=== PATIENT | female | born 1985 | race Caucasian/White ===

== ENCOUNTER → 2019-05-10 14:34 | Outpatient (CLI) | payer SELFPAY ==
[2019-05-10 13:52] VITALS: BMI 34.2
[2019-05-10 15:08] LABS: Absolute Lymphocyte Count 1.95 X10^3/ul (0.83-4.51); Absolute Neutrophil Count 6.4 X10^3/uL (2.0-7.7); Basophil# 0.01 X10^3/uL; Basophil% 0.1 % (0-1); Eosinophil# 0.11 X10^3/uL; Eosinophils% 1.2 % (0-5); Hematocrit 37.9 % (37-47); Hemoglobin 12.7 g/dl (12.0-15.0); Lymphocyte # 1.95 X10^3/ul (4.0); Lymphocyte % 21.5 % (19-41); Mean Corp Hgb Conc 33.5 g/gl (32-36); Mean Corpuscular Hgb 29.2 pg (27.0-32.0); Mean Corpuscular Volume 87.1 fL (81-99); Mean Platelet Vol. 10.9 fl (6.2-12.0); Monocyte# 0.62 X10^3/uL; Monocyte% 6.8 % (0-10); Neutrophil # 6.39 X10^3/uL (2.7-7.7); Neutrophil % 70.3 % (47-70); POSITIVE COUNT NO; POSITIVE DIFFERENTIAL NO; POSITIVE MORPHOLOGY NO; Platelet Count 215 K/mm3 (150-450); RBC Distribution Width SD 41.4 fl (35.1-43.9); Red Blood Count 4.35 M/mm3 (4.2-5.4); White Blood Count 9.1 K/mm3 (4.4-11.0)
[2019-05-10 16:22] LABS: HIV - WCH Non-Reactive (Nonreactive); Rubella IgG 66.5 IU/mL
[2019-05-10 23:56] LABS: Chlamydia Trachomatis by PCR Negative (Negative); Neisserai gonorrhoeae by PCR Negative (Negative); Probe Check PASS; Sample Adequacy Control PASS; Specimen Processing Control PASS
[2019-05-12 02:32] LABS: Rapid Plasmin Reagin (RPR) NONREACTIVE (NONREACTIVE)
[2019-05-21 14:09] LABS: HPV APTIMA, High Risk Negative (Negative)
== END ==
PROVIDERS: Nurse Practitioner Women's Health; Family Provider Family Medicine; PCP Family Medicine; Referring Provider Obstetrics & Gynecology; Visit Provider Obstetrics & Gynecology
DX: Z34.90 Encounter for supervision of normal pregnancy, unspecified, unspecified trimester (principal); Z12.4 Encounter for screening for malignant neoplasm of cervix
CPT/HCPCS: 36415; 85025; 86592; 86703; 86762; 86850; 86900; 87086; 87340; 87491; 87591; 87624; 88175; G0145

== ENCOUNTER → 2019-08-14 12:17 | Outpatient (CLI) | payer SELFPAY ==
[2019-06-09 14:32] VITALS: BMI 34.2
[2019-08-04 09:09] VITALS: BMI 34.2
--- NOTE | 2019-08-14 12:21 | US_ITS ---
STUDY: SECOND AND THIRD TRIMESTER OBSTETRICAL ULTRASOUND REASON FOR EXAM: Female, 34 years old anatomy LMP: TECHNIQUE: Transabdominal TECHNICAL QUALITY: Adequate. PRIOR ULTRASOUND: None. FINDINGS: There is a single intrauterine fetus. The fetus is in a breech presentation. There is demonstrated cardiac activity with a heart rate of 150 bpm. There is a normal amniotic fluid volume. The largest amniotic fluid pocket measures 4.03 x 4.2 cm. The amniotic fluid index (RAJNI) is 14.48 cm. The placenta is anterior and fundal There are Grade 1 placental changes. The cervix measures 8.2 cm in length. The bilateral adnexal regions are nonvisualized BIOMETRY: BPD: 4.79 cm: 20 weeks, 3 days HC: 17.94 cm: 20 weeks, 2 days AC: 15.62 cm: 20 weeks, 5 days FL: 3.31 cm: 20 weeks, 2 days CI: 0.759 FL/BPD: 0.691 FL/HC: FL/AC: 0.212 HC/AC: 1.15 age by current US: 20 weeks, 3 days. SAM by current US: December 29, 2019. Estimated weight: 365 grams, +/- 55 grams, 62 %. age by prior US: 20 weeks, 1 days. SAM by prior US: December 31, 2019. Age by LMP: weeks, days. SAM by LMP: . ANATOMY: Cranium: Normal lateral ventricles. Normal choroid plexus. Normal cerebellum. Normal cisterna magna. Normal face, nose and lips. Chest: Normal 4-chamber heart. Abdomen/Pelvis: Normal diaphragm. Normal stomach. Normal abdominal wall. Normal cord insertion. Normal 3 vessel cord. Normal kidneys. Normal bladder. Spine: Normal cervical spine. Normal thoracic spine. Normal lumbar spine. Normal sacrum. Extremities: Normal bilateral upper extremities. Normal bilateral lower extremities. US/OB Anatomy Scan IMPRESSION: Viable intrauterine gestation approximately 20-21 weeks gestational age with fetus currently in breech position. No anomalies identified at this time Electronically Signed: Bartolome Mccormack MD at 19:23 EDT , Service support ,
== END ==
PROVIDERS: Family Provider Family Medicine; PCP Family Medicine; Referring Provider Obstetrics & Gynecology; Visit Provider Obstetrics & Gynecology
DX: Z36.89 Encounter for other specified antenatal screening (principal)
CPT/HCPCS: 76805

== ENCOUNTER → 2019-09-29 09:00 | Outpatient (CLI) | payer SELFPAY ==
[2019-09-29 08:42] VITALS: BMI 34.2
[2019-09-29 10:01] LABS: Absolute Lymphocyte Count 1.34 X10^3/uL (0.83-4.51); Absolute Neutrophil Count 6.3 X10^3/uL (2.0-7.7); Basophil# 0.03 X10^3/uL; Basophil% 0.4 % (0-1); Eosinophil# 0.09 X10^3/uL; Eosinophils% 1.1 % (0-5); Hematocrit 35.7 % (37-47); Hemoglobin 11.6 g/dL (12.0-15.0); Lymphocyte # 1.34 X10^3/ul (4.0); Mean Corp Hgb Conc 32.5 g/dL (32-36); Mean Corpuscular Hgb 30.1 pg (27.0-32.0); Mean Corpuscular Volume 92.7 fL (81-99); Monocyte# 0.54 X10^3/uL; Monocyte% 6.5 % (0-10); NRBC Flagged by Analyzer 0 % (0-5); Neutrophil % 75.2 % (47-70); Platelet Count 160 K/mm3 (150-450); RBC Distribution Width CV 13.6 % (11.6-14.6); RBC Distribution Width SD 45.8 fl (35.1-43.9); Red Blood Count 3.85 M/mm3 (4.2-5.4); White Blood Count 8.4 K/mm3 (4.4-11.0)
[2019-09-29 10:31] LABS: Glucose Challenge Gest 1H 50g 83 mg/dL (70-140)
[2019-09-29 11:03] LABS: Hepatitis B Surface Antigen Non-Reactive (Nonreactive)
== END ==
PROVIDERS: Family Provider Family Medicine; PCP Family Medicine; Referring Provider Nurse Practitioner Women's Health; Visit Provider Nurse Practitioner Women's Health
DX: Z34.90 Encounter for supervision of normal pregnancy, unspecified, unspecified trimester (principal)
CPT/HCPCS: 36415; 82950; 85025; 87340

== ENCOUNTER → 2019-11-17 16:00 | Outpatient (CLI) | payer SELFPAY ==
[2019-11-17 16:01] VITALS: BMI 34.2
[2019-11-17 16:43] LABS: ROM Internal Control Test YES-OK TO RESULT pt. (Internal QC)
[2019-11-17 16:45] LABS: ROM Patient Test Negative (Negative)
== END ==
PROVIDERS: Family Provider Family Medicine; PCP Family Medicine; Visit Provider Obstetrics & Gynecology
DX: N89.8 Other specified noninflammatory disorders of vagina (principal)
CPT/HCPCS: 84112

== ENCOUNTER → 2019-12-08 09:27 | Outpatient (CLI) | payer SELFPAY ==
[2019-12-08 08:53] VITALS: BMI 35.6
--- NOTE | 2019-12-08 09:34 | US_ITS ---
STUDY: SECOND AND THIRD TRIMESTER OBSTETRICAL ULTRASOUND - LIMITED REASON FOR EXAM: Female, 34 years old GROWTH LARGE FOR DATES LMP: March 26, 2019. PRIOR ULTRASOUND: Comparison is made with prior study discussed August 14, 2019. TECHNIQUE: Transabdominal TECHNICAL QUALITY: Adequate. FINDINGS: There is a single intrauterine fetus. The fetus is in a cephalic presentation. There is demonstrated cardiac activity with a heart rate of 158 bpm. There is a normal amniotic fluid volume. The largest amniotic fluid pocket measures 6 cm x 8.8 cm. The amniotic fluid index (RAJNI) is 19.2 cm. The placenta is anterior in location and is not low lying. There are Grade 2 placental changes. The cervix measures 6.0 cm in length. BIOMETRY: BPD: 9.36 cm: 38 weeks, 1 days HC: 33.21 cm: 38 weeks, 0 days AC: 33.77 cm: 37 weeks, 5 days FL: 7.32 cm: 38 weeks, 2 days Age by LMP: 36 weeks, 5 days. SAM by LMP: December 31, 2019. age by prior US: 37 weeks, 0 days. SAM by prior US: December 29, 2019. age by current US: 37 weeks, 6 days. SAM by current US: December 23, 2019. Estimated weight: 3283 grams, +/- 479 grams, 80 percentile. Small bilateral hydroceles. US/OB Limited With Biometrics IMPRESSION: Single live uterine gestation with a mean gestational age of 37 weeks. The measurements obtained today fall within the normal expected range. Electronically Signed: Marcin Coe, at 8:35 EST , Service support ,
== END ==
PROVIDERS: PCP Family Medicine; Referring Provider Obstetrics & Gynecology; Visit Provider Obstetrics & Gynecology
DX: O36.63X0 Maternal care for excessive fetal growth, third trimester, not applicable or unspecified (principal); Z3A.36 36 weeks gestation of pregnancy
CPT/HCPCS: 76816; 87081

== ENCOUNTER 2019-12-20 16:35 | Outpatient (CLI) | payer SELFPAY ==
[2019-12-15 08:41] VITALS: BMI 35.6
[2019-12-20 17:04] VITALS: BMI 35.9
--- NOTE | 2019-12-20 17:33 | US_ITS ---
STUDY: OBSTETRICAL ULTRASOUND - BIOPHYSICAL PROFILE REASON FOR EXAM: Female, 34 years old. well being PRIOR ULTRASOUND: 12/08/2019 TECHNIQUE: Transabdominal ultrasound evaluation was performed. FINDINGS: There is a single intrauterine fetus. The fetus is in a cephalic presentation. There is demonstrated cardiac activity with a heart rate of 132 bpm. There is a normal amniotic fluid volume. The amniotic fluid index (RAJNI) is 15.09 cm. The placenta is anterior in location and is not low lying. BIOPHYSICAL PROFILE: Breathing Movements (FBM): 2 Gross Body Movements (GBM): 2 Tone (FT): 2 Amniotic Fluid Volume (AFV): 2 TOTAL SCORE: US/Biophysical Profile IMPRESSION: Normal biophysical profile of 06/29. Electronically Signed: Jonas Hopkins, at 20:22 EST Tel , Service support ,
--- NOTE | 2019-12-21 01:27 | OB.TRI.PN ---
Progress Notes Date of Service: 12/20/19 Progress Note: Patient presents for triage evaluation secondary to contractions FHT: 130s moderate variability reactive two isolated variable decelerations resolved and now category I tracing [place]: Every 2-4 minutes contractions Assessment and plan: False labor and variable deceleration, 8 out of 8 BPP and normal RAJNI reactive NST, reassuring maternal and status patient discharged to home to follow-up as scheduled kick counts reviewed. See problem list details for additional plan information. Multi Select Codes - Urinary/Genital Urinary/Genital CPT Codes: 50188-59 non-stress test Interp
== END 2019-12-20 18:25 | disposition home or self-care (01) ==
LOC: WPOUT 16:38 → OBT 16:38
PROVIDERS: PCP Family Medicine; Referring Provider Obstetrics & Gynecology; Visit Provider Obstetrics & Gynecology
DX: O47.9 False labor, unspecified (principal); Z3A.00 Weeks of gestation of pregnancy not specified
CPT/HCPCS: 59025; 59050; 76818; 99218; G0378

== ENCOUNTER 2019-12-21 12:00 | Inpatient (IN) | payer SELFPAY ==
[2019-12-20 17:04] VITALS: BMI 35.9
[2019-12-21 08:02] VITALS: BMI 34.3
--- NOTE | 2019-12-21 12:06 | HP.PCM_ITS ---
- Problem List (1) SROM (spontaneous rupture of membranes) Status: Acute (2) Influenza vaccination declined Status: Acute (3) Large for gestational age fetus Status: Acute Comment: growth US ordered (4) Status: Acute Qualifiers: Comment: carrier, ntd, and genetic screening declined. anatomy scan normal. (5) Supervision of other normal Status: Acute Comment: PRR SAM: 12/31/19 boy PC Ricardo Carlson(adopted), Iris. Spouse Vito (6) Tetanus, diphtheria, and acellular pertussis (Tdap) vaccination declined Status: Acute History Date of Admission: 12/21/19 Final SAM: 12/31/19 Gestational age: 38 Weeks and 4 Days History of this : This is a 34 year-old, , at 38 weeks gestational age presents in active labor 45 cm with spontaneous rupture of membranes clear fluid. Patient is had regular contractions since yesterday afternoon patient has had some bloody show also since then. Allergies No Known Allergies Allergy (Verified 12/21/19 08:04) Home Medications: Home Medications Vitamin B Complex 1 tab PO DAILY 04/27/17 vitamin#30 30 mg iron-10 mg iron-folic acid 1 mg-omg3 capsule 1 cap PO DAILY cap 06/09/19 ascorbic acid (vitamin C) 500 mg capsule 1 tab PO DAILY 12/08/19 Smoking Status: Never smoker Alcohol: None Number of Fetus(es): 1 NST - FHR Rate Baby A Baseline: 130 Variability:: Moderate Accelerations:: 15 x 15 Decelerations:: None NST Reactive:: Yes FHR Category:: Category I Uterine Activity:: no regular History Past Pregnancies: Past Pregnancies Pregancy History 3 Elective abortions Hx Para 2 Spontaneous abortions Hx # Term Pregnancies Ectopic pregnancies Hx # Pregnancies Multiple births # of living children Past Pregnancies Del. Date Name GA/Weeks Outcome Route Bth Weight Infant Gen Labor Lgth Anesthesia Del Locatn Provider FOB 03/15/11 Aldo 40 live - full term 8lbs 6oz Male 1 3 hours epidural [facility] Dr. Tyler Padron 06/24/11 Ricardo 04/27/17 Iris 40 live - full term 8lbs 3oz Female none [facility] Dr. Jude Padron Delivery Date: 03/15/11 On 05/10/19 @ 13:34 Sandee Grayson No issues during or delivery. Delivery Date: 06/24/11 On 05/10/19 @ 13:34 Sandee Grayson Adopted child Delivery Date: 04/27/17 On 05/10/19 @ 13:35 Sandee Grayson No issues during or delivery. Labs: Social History Alleged father Navin Arreola Smoking No Smoking Status Never smoker Expected Delivery Method: Spontaneous Vaginal Review of Systems Constitutional: Denies: Fever, Malaise Eyes: Denies: Blurred vision, Vision Change HEENT: Denies: Head Aches, Visual Changes Cardiovascular: Denies: Chest Pain, Palpitations Respiratory: Denies: Cough, Shortness of Breath, Wheezing Gastrointestinal: Reports: Abdominal Pain, Nausea. Denies: Diarrhea, Vomiting Genitourinary: Denies: Dysuria, Hematuria Gynecological: Reports: Vaginal bleeding, Vaginal discharge Musculoskeletal: Denies: Joint Pain, Muscle pain Skin: Denies: Lesions, Rash Neurological: Denies: Blurred vision, Focal weakness, Headaches Psychiatric: Denies: Anxiety, Depression Endocrine: Denies: Heat/ Cold Intolerance Hematologic/ Lymphatic: Denies: Easy Bruising, Easy Bleeding Physical Exam General: Alert, Cooperative, No apparent distress HEENT: Atraumatic, Normocephalic. Negative for: Thyromegaly, Lymphadenopathy Cardiovascular: Regular rate Lungs: Normal air movement Abdomen: Soft, Non Tender, Gravid Neurological: Deep Tendon Reflexes 2+/4 and Symmetrical, Neuro grossly intact. Negative for: Clonus [employer]ICE: Normal external genitalia. Negative for: Vulvar lesions Estimated gestational size: Appropriate for gestational size Presentation: Cephalic Cervix Dilation (cm): 4.5 Station: -2 Effacement (%): 70 Assessment/Plan All Active Problems (Last Reviewed 12/15/19 @ 08:40 by Sandee Grayson) SROM (spontaneous rupture of membranes) (Acute) Large for gestational age fetus (Acute) Tetanus, diphtheria, and acellular pertussis (Tdap) vaccination declined (Acute) Influenza vaccination declined (Acute) (Acute) Supervision of other normal (Acute) This is a 34 year-old, at 38 weeks gestational age presents IAL with SROM. prefers minimal intervention gbs neg
[2019-12-21 13:01] LABS: Absolute Lymphocyte Count 1.19 X10^3/uL (0.83-4.51); Absolute Neutrophil Count 12.8 X10^3/uL (2.0-7.7); Basophil# 0.03 X10^3/uL; Basophil% 0.2 % (0-1); Eosinophil# 0.03 X10^3/uL; Eosinophils% 0.2 % (0-5); Hematocrit 37.9 % (37-47); Hemoglobin 12.7 g/dL (12.0-15.0); Lymphocyte # 1.19 X10^3/ul (4.0); Lymphocyte % 7.9 % (19-41); Mean Corp Hgb Conc 33.5 g/dL (32-36); Mean Corpuscular Hgb 29.9 pg (27.0-32.0); Mean Corpuscular Volume 89.2 fL (81-99); Mean Platelet Vol. 11.9 fl (6.2-12.0); NRBC Flagged by Analyzer 0 % (0-5); Neutrophil # 12.76 X10^3/uL (2.7-7.7); Neutrophil % 85.2 % (47-70); Platelet Count 150 K/mm3 (150-450); RBC Distribution Width CV 12.8 % (11.6-14.6); RBC Distribution Width SD 41.3 fl (35.1-43.9); Red Blood Count 4.25 M/mm3 (4.2-5.4)
[2019-12-21] MEDS: Amnioinfusion- 0.9% NS 1,000 ML IV.SOLN. 500 ML INTRA-UTER (13:54)
[2019-12-21 18:18] VITALS: BP 109/74; PULSE 107
[2019-12-21 18:33] VITALS: BP 98/68; PULSE 105
--- NOTE | 2019-12-21 20:04 | NURSING ---
pt ambulated to RR, voided 800. Passed 200 cc clot. Assisted back to bed. FF +2. Small vb. Midline. Denies dizziness. Jatin RICHEY made aware and plans to update .
[2019-12-21 20:38] VITALS: BP 107/67; PULSE 77; RESP 16; TEMP 36.9
[2019-12-21 23:20] VITALS: BP 99/63; PULSE 92; RESP 16; TEMP 36.9
[2019-12-22 04:30] VITALS: BP 105/65; PULSE 90; RESP 16; TEMP 36.9
--- NOTE | 2019-12-22 05:19 | OP.PCM_ITS ---
Problem List (1) SROM (spontaneous rupture of membranes) Status: Acute (2) Influenza vaccination declined Status: Acute (3) Large for gestational age fetus Status: Acute Comment: growth US ordered (4) Status: Acute Qualifiers: Comment: carrier, ntd, and genetic screening declined. anatomy scan normal. (5) Supervision of other normal Status: Acute Comment: PRR SAM: 12/31/19 boy PC Aldo, Ricardo(adopted), Iris. Spouse Vito (6) Tetanus, diphtheria, and acellular pertussis (Tdap) vaccination declined Status: Acute Vaginal Delivery Maternal Presentation: Active Labor Amniotic Membrane Rupture Type: Spontaneous Amniotic Fluid Description: Clear Date of Procedure: 12/21/19 Pre-Operative Diagnosis: ial Post-Operative Diagnosis: same Surgery/ Procedure Performed: Spontaneous Vaginal Delivery Type of Anesthesia: None Description of Procedure: patient delivered on hands and knees, head followed by anterior and posterior shoulders. rest of delivered, delayed cord clamping and then cord cut, placenta delivered spontaneously. ebl 100cc Presentation: DIANNA Placental Delivery Description: Spontaneous Placenta Disposition: [facility] Cord Vessel Description: 3 Vessels Cord Entanglement: None Estimated Blood Loss: 100 A gender: Male Episiotomy Description: None Laceration: None Complications: None Multi Select Codes - Urinary/Genital Urinary/Genital CPT Codes: 16229 Vaginal Delivery [facility]
--- NOTE | 2019-12-22 05:24 | DCINST_ITS ---
Discharge Diet: No Restrictions Discharge Activity: Return to Normal Activity, May not drive while taking narcotic pain medications., May Shower May resume sexual activity in: 4-6 weeks Call your doctor if your incision/area has: Continuous Slow Oozing, Sudden Increased Bleeding, Increased Pain/ Swelling, Increased Redness, Foul Smelling Discharge Additional Instructions: If you experience any of the following, contact your healthcare provider. * Bleeding that soaks a pad every hour for 2 hours * Fever 100.4 or higher * Unrelieved incision or abdominal pain * Swelling, redness, discharge or bleeding from your incision or episiotomy site * Your incision begins to separate * Problems urinating (including inability to urinate or burning while urinating). * Visual changes * Severe headache * Flu-like symptoms * Pain or redness in one of both of your breasts * Pain, warmth, tenderness or swelling in your legs, especially the calf area * Frequent nausea and vomiting * Symptoms of depression or anxiety If you experience any of the following, call 911 or go to the nearest Emergency Room. * Chest pain * Problems breathing * Seizure activity * Partial or complete paralysis of a body part, slurred speech, weakness or drooping of the face, or a sudden inability to walk or hold your balance Allergies/Adverse Reactions: Allergies No Known Allergies Allergy (Verified 12/21/19 08:04) Medications to take at Discharge Vitamin B Complex 1 tab PO DAILY 04/27/17 vitamin#30 30 mg iron-10 mg iron-folic acid 1 mg-omg3 capsule 1 cap PO DAILY cap 06/09/19 ascorbic acid (vitamin C) 500 mg capsule 1 tab PO DAILY 12/08/19 Please Follow Up With: Bronwyn oRque MD - [phone] When: Call to make an appointment with your doctor in 6 weeks. If you had elevated Blood pressure or 4th degree laceration you will need to be seen in 2 weeks. Primary Care Physician: Alton Monsivais MD [Primary Care Provider] - Test Results: Test results from this visit will be discussed in further detail at your follow- up appointment, if applicable.
--- NOTE | 2019-12-22 05:24 | PN.OBGYN_ITS ---
Subjective: doing well no complaints pain controlled no CP SOB N V ambulating well tolerating po lochia moderate, going well - Physical Exam Vitals/I&O's: Vital Signs Temp Pulse Resp BP 98.4 F 90 16 105/65 12/22/19 04:30 12/22/19 04:30 12/22/19 04:30 12/22/19 04:30 Oxygen Delivery Method Room Air Weight: 181 lb 12.8 oz Body Mass Index (BMI) 34.3 Intake and Output for Last 24 Hours 12/20/19 12/21/19 12/22/19 23:59 23:59 23:59 Output Total 1000 / 1000 Balance -1000 / -1000 General: Alert, Oriented x3 Laboratory Results 12/21/19 12:40: WBC 15.0 H, RBC 4.25, Hgb 12.7, Hct 37.9, MCV 89.2, MCH 29.9, MCHC 33.5, RDW Std Deviation 41.3, RDW Coeff of [place] 12.8, Plt Count 150, MPV 11.9, Immature Gran % (Auto) 0.500, Neut % (Auto) 85.2 H, Lymph % (Auto) 7.9 L, [place] % (Auto) 6.0, Eos % (Auto) 0.2, Baso % (Auto) 0.2, Absolute Neuts (auto) 12.8 H, Absolute Lymphs (auto) 1.19, Nucleated RBC % 0 12/21/19 12:40: Blood Type O POSITIVE, Antibody Screen NEGATIVE Current Medications Acetaminophen (Tylenol) 1,000 mg PO Q8H PRN PRN PRN Reason: Pain Score 1-3/10 Bisacodyl (Dulcolax) 10 mg RECTAL UD PRN PRN Reason: If no BM Dibucaine (Dibucaine) 1 applic TOPICAL TID PRN PRN; Protocol PRN Reason: Discomfort Hydrocortisone (Hytone) 1 applic TOPICAL TID PRN PRN; Protocol PRN Reason: Discomfort Methylergonovine Maleate (Methergine) 0.2 mg IM X1 PRN PRN Reason: Excess bleeding/uterine atony Naproxen (Naprosyn) 500 mg PO Q8H PRN PRN PRN Reason: Pain Score 1-3/10 Ondansetron HCl (Zofran) 4 mg IV Q4H PRN PRN PRN Reason: Nausea Oxycodone HCl (Oxyir) 5 - 10 mg PO Q4H PRN PRN PRN Reason: Pain Score 4-10/10 Senna/Docusate Sodium (Senokot-S, Amarilis-Colace) 1 - 2 tablet PO DAILY PRN PRN PRN Reason: Constipation Simethicone (Mylicon) 80 mg PO PCHS PRN PRN Reason: Indigestion/Stomach pain Sodium Chloride () 5 - 15 ml IV UD PRN PRN Reason: SALINE FLUSH Medical Necessity - Tobacco Use Smoking Status: Never smoker Assessment/Plan All Active Problems (Last Reviewed 12/15/19 @ 08:40 by Sandee Grayson) SROM (spontaneous rupture of membranes) (Acute) Large for gestational age fetus (Acute) Tetanus, diphtheria, and acellular pertussis (Tdap) vaccination declined (Acute) Influenza vaccination declined (Acute) (Acute) Supervision of other normal (Acute) s/p PPD # 1 1. routine post delivery care 2. breast feeding- support given 3. rh positive 4. rubella immune
--- NOTE | 2019-12-22 05:24 | PCM.DCVAG ---
Discharge Diet: No Restrictions Discharge Activity: Return to Normal Activity, May not drive while taking narcotic pain medications., May Shower May resume sexual activity in: 4-6 weeks Call your doctor if your incision/area has: Continuous Slow Oozing, Sudden Increased Bleeding, Increased Pain/ Swelling, Increased Redness, Foul Smelling Discharge Additional Instructions: If you experience any of the following, contact your healthcare provider. Bleeding that soaks a pad every hour for 2 hours Fever 100.4 or higher Unrelieved incision or abdominal pain Swelling, redness, discharge or bleeding from your incision or episiotomy site Your incision begins to separate Problems urinating (including inability to urinate or burning while urinating). Visual changes Severe headache Flu-like symptoms Pain or redness in one of both of your breasts Pain, warmth, tenderness or swelling in your legs, especially the calf area Frequent nausea and vomiting Symptoms of depression or anxiety If you experience any of the following, call 911 or go to the nearest Emergency Room. Chest pain Problems breathing Seizure activity Partial or complete paralysis of a body part, slurred speech, weakness or drooping of the face, or a sudden inability to walk or hold your balance Allergies/Adverse Reactions: Allergies No Known Allergies Allergy (Verified 12/21/19 08:04) Medications to take at Discharge Vitamin B Complex 1 tab PO DAILY 04/27/17 vitamin#30 30 mg iron-10 mg iron-folic acid 1 mg-omg3 capsule 1 cap PO DAILY cap 06/09/19 ascorbic acid (vitamin C) 500 mg capsule 1 tab PO DAILY 12/08/19 Please Follow Up With: Bronwyn Roque MD - [phone] When: Call to make an appointment with your doctor in 6 weeks. If you had elevated Blood pressure or 4th degree laceration you will need to be seen in 2 weeks. Primary Care Physician: Alton Monsivais MD [Primary Care Provider] - Test Results: Test results from this visit will be discussed in further detail at your follow-up appointment, if applicable.
[2019-12-22 08:15] VITALS: BP 100/54; PULSE 95; RESP 24; TEMP 36.6; O2SAT 96
[2019-12-22 13:15] VITALS: BP 98/61; PULSE 87; TEMP 37.3
== END 2019-12-22 20:00 | disposition home or self-care (01) | DRG 807 ==
LOC: WPOUT 12:06 → WP 12:06
PROVIDERS: Admitting Provider Obstetrics & Gynecology; PCP Family Medicine; Referring Provider Obstetrics & Gynecology; Visit Provider Obstetrics & Gynecology
DX: O36.60X0 Maternal care for excessive fetal growth, unspecified trimester, not applicable or unspecified (principal); Z37.0 Single live birth; Z3A.38 38 weeks gestation of pregnancy
CPT/HCPCS: 59025; 59050; 85025; 86850; 86900; 86901; 99218; J7030; G0378

== ENCOUNTER → 2020-12-12 14:31 | Outpatient (CLI) | payer SELFPAY ==
[2020-01-26 08:25] VITALS: BMI 34.3
--- NOTE | 2020-12-12 14:37 | US_ITS ---
STUDY: SECOND AND THIRD TRIMESTER OBSTETRICAL ULTRASOUND REASON FOR EXAM: Female, 35 years old DATING/ WELL BEING- LMP UNKNOWN LMP: Unknown TECHNIQUE: Transabdominal and Transvaginal TECHNICAL QUALITY: Adequate. PRIOR ULTRASOUND: None. FINDINGS: There is a single intrauterine fetus. The fetus is in an transverse lie with the head on the maternal left side. There is demonstrated cardiac activity with a heart rate of 155 bpm. There is a normal amniotic fluid volume. The largest amniotic fluid pocket measures 2.3 cm x 5.6 cm. The amniotic fluid index (RAJNI) is within normal limits. The placenta is posterior in location and is not low lying. There are Grade 0 placental changes. The cervix measures 4.9 cm in length. The bilateral adnexal regions are normal. BIOMETRY: BPD: 2.5 cm: 14 weeks, 2 days HC: 9.3 cm: 14 weeks, 1 days AC: 7.3 cm: 13 weeks, 5 days FL: 1.2 cm: 13 weeks, 3 days FL/BPD: 47% FL/AC: 16% HC/AC: 1.28 age by current US: 13 weeks, 6 days. SAM by current US: 06/13/2021. Estimated weight: 81 grams, +/- 12 grams, %. US/Init OB < 14Wks US IMPRESSION: Single live intrauterine gestation with a mean gestational age of 13 weeks and 6 days. Electronically Signed: Marcin Coe MD at 15:34 EST , Service support ,
== END ==
PROVIDERS: PCP Family Medicine; Referring Provider Obstetrics & Gynecology; Visit Provider Obstetrics & Gynecology
DX: Z34.90 Encounter for supervision of normal pregnancy, unspecified, unspecified trimester (principal)
CPT/HCPCS: 76801

== ENCOUNTER → 2020-12-18 16:42 | Outpatient (CLI) | payer SELFPAY ==
[2020-12-18 14:46] VITALS: BMI 30.8
[2020-12-18 18:01] LABS: Amphetamine Urine VISTA NEGATIVE (<1000 ng/mL); Barbiturate Urine VISTA NEGATIVE (< 200 ng/mL); Benzodiazepine Urine VISTA NEGATIVE (< 200 ng/mL); Cocaine Urine VISTA NEGATIVE (< 300 ng/mL); Ecstacy Urine VISTA NEGATIVE (< 500 ng/mL); Methadone Urine VISTA NEGATIVE (< 300 ng/mL); PCP Urine VISTA NEGATIVE (< 25 ng/mL); THC Urine VISTA NEGATIVE (< 50 ng/mL); Vista UDS pH Range 7
== END ==
PROVIDERS: PCP Family Medicine; Referring Provider Obstetrics & Gynecology; Visit Provider Obstetrics & Gynecology
DX: Z34.90 Encounter for supervision of normal pregnancy, unspecified, unspecified trimester (principal)
CPT/HCPCS: 80307; 87086; 87088

== ENCOUNTER → 2021-01-22 07:49 | Outpatient (CLI) | payer SELFPAY ==
[2020-12-18 14:46] VITALS: BMI 30.8
[2021-01-13 08:45] VITALS: BMI 31.9
--- NOTE | 2021-01-22 07:52 | US_ITS ---
STUDY: SECOND AND THIRD TRIMESTER OBSTETRICAL ULTRASOUND REASON FOR EXAM: Female, 35 years old anatomy LMP: 09/06/2020. TECHNIQUE: Transabdominal and Transvaginal TECHNICAL QUALITY: Adequate. PRIOR ULTRASOUND: Comparison is made with prior study dated 06/11/2021. FINDINGS: There is a single intrauterine fetus. The fetus is in a breech presentation. There is demonstrated cardiac activity with a heart rate of 148 bpm. There is a normal amniotic fluid volume. The largest amniotic fluid pocket measures 9 cm x 4.6 cm. The amniotic fluid index (RAJNI) is within normal limits. The placenta is posterior in location and is not low lying. There are Grade 0 placental changes. The cervix measures 5 cm in length. The bilateral adnexal regions are normal. BIOMETRY: BPD: 4.33 cm: 19 weeks, 0 days HC: 16.91 cm: 19 weeks, 3 days AC: 14.84 cm: 20 weeks, 0 days FL: 3.09 cm: 19 weeks, 3 days CI: 74% FL/BPD: 71.24% FL/HC: FL/AC: 20.8% HC/AC: 1.14 age by current US: 19 weeks, 3 days. SAM by current US: 06/15/2021. Estimated weight: 313 grams, +/- 47 grams, 48 %. age by prior US: 19 weeks, 5 days. SAM by prior US: 06/13/2021. Age by LMP: 19 weeks, 5 days. SAM by LMP: 06/13/2021. ANATOMY: Gender: Male Cranium: Normal lateral ventricles. Normal choroid plexus. Normal cerebellum. Normal cisterna magna. Normal face, nose and lips. Chest: Normal 4-chamber heart. Abdomen/Pelvis: Normal diaphragm. Normal stomach. Normal abdominal wall. Normal cord insertion. Normal 3 vessel cord. Normal kidneys. Normal bladder. Spine: Normal cervical spine. Normal thoracic spine. Normal lumbar spine. Normal sacrum. Extremities: Normal bilateral upper extremities. Normal bilateral lower extremities. US/OB Anatomy Scan IMPRESSION: Single live intrauterine gestation with a mean gestational age of 19 weeks and 5 days. The measurements obtained today fall within the normal expected range. Electronically Signed: Marcin Coe MD at 10:26 EST , Service support ,
== END ==
PROVIDERS: PCP Family Medicine; Referring Provider Obstetrics & Gynecology; Visit Provider Obstetrics & Gynecology
DX: Z34.90 Encounter for supervision of normal pregnancy, unspecified, unspecified trimester (principal)
CPT/HCPCS: 76805; 76817

== ENCOUNTER → 2021-02-17 09:10 | Outpatient (CLI) | payer SELFPAY ==
[2021-02-17 08:47] VITALS: BMI 33.0
[2021-02-17 09:30] LABS: Absolute Lymphocyte Count 1.36 X10^3/uL (0.83-4.51); Absolute Neutrophil Count 7.5 X10^3/uL (2.0-7.7); Basophil# 0.02 X10^3/uL; Basophil% 0.2 % (0-1); Hemoglobin 11.6 g/dL (12.0-15.0); Lymphocyte # 1.36 X10^3/ul (4.0); Mean Corp Hgb Conc 33.1 g/dL (32-36); Mean Corpuscular Hgb 30.5 pg (27.0-32.0); Mean Corpuscular Volume 92.1 fL (81-99); Mean Platelet Vol. 11.1 fl (6.2-12.0); Monocyte# 0.65 X10^3/uL; Monocyte% 6.7 % (0-10); NRBC Flagged by Analyzer 0 % (0-5); Neutrophil # 7.53 X10^3/uL (2.7-7.7); Neutrophil % 77.5 % (47-70); Platelet Count 194 K/mm3 (150-450); RBC Distribution Width CV 13.3 % (11.6-14.6); RBC Distribution Width SD 44.3 fl (35.1-43.9); White Blood Count 9.7 K/mm3 (4.4-11.0)
[2021-02-17 10:46] LABS: HIV - WCH Non-Reactive (Nonreactive); Hepatitis B Surface Antigen Non-Reactive (Nonreactive); Hepatitis C Antibody Non-Reactive (Nonreactive); Rubella IgG Reactive (Nonreactive); Syphilis Antibodies Non-reactive
== END ==
PROVIDERS: Obstetrics & Gynecology; PCP Family Medicine; Referring Provider Obstetrics & Gynecology; Visit Provider Obstetrics & Gynecology
DX: Z34.80 Encounter for supervision of other normal pregnancy, unspecified trimester (principal)
CPT/HCPCS: 36415; 85025; 86703; 86762; 86780; 86803; 86850; 86900; 86901; 87340

== ENCOUNTER → 2021-04-07 12:24 | Outpatient (CLI) | payer SELFPAY ==
[2021-04-07 11:51] VITALS: BMI 35.0
[2021-04-07 12:47] LABS: Absolute Lymphocyte Count 1.34 X10^3/uL (0.83-4.51); Absolute Neutrophil Count 6.9 X10^3/uL (2.0-7.7); Basophil# 0.02 X10^3/uL; Basophil% 0.2 % (0-1); Eosinophil# 0.13 X10^3/uL; Eosinophils% 1.4 % (0-5); Hematocrit 34.3 % (37-47); Lymphocyte # 1.34 X10^3/ul (0.83-4.51); Lymphocyte % 14.6 % (19-41); Mean Corp Hgb Conc 32.1 g/dL (32-36); Mean Corpuscular Hgb 29.7 pg (27.0-32.0); Mean Corpuscular Volume 92.7 fL (81-99); Mean Platelet Vol. 11.4 fl (6.2-12.0); Monocyte# 0.71 X10^3/uL; Monocyte% 7.8 % (0-10); NRBC Flagged by Analyzer 0 % (0-5); Neutrophil # 6.89 X10^3/uL (2.7-7.7); Neutrophil % 75.2 % (47-70); Platelet Count 166 K/mm3 (150-450); RBC Distribution Width SD 43.6 fl (35.1-43.9); White Blood Count 9.2 K/mm3 (4.4-11.0)
== END ==
PROVIDERS: PCP Family Medicine; Referring Provider Obstetrics & Gynecology; Visit Provider Obstetrics & Gynecology
DX: Z34.93 Encounter for supervision of normal pregnancy, unspecified, third trimester (principal); Z3A.30 30 weeks gestation of pregnancy
CPT/HCPCS: 36415; 85025

== ENCOUNTER → 2021-05-19 11:58 | Outpatient (CLI) | payer SELFPAY ==
[2021-04-28 11:29] VITALS: BMI 35.0
[2021-05-19 11:40] VITALS: BMI 35.4
--- NOTE | 2021-05-19 12:04 | US_ITS ---
STUDY: SECOND AND THIRD TRIMESTER OBSTETRICAL ULTRASOUND - LIMITED REASON FOR EXAM: Female, 36 years old growth LMP: 09/06/2020 PRIOR ULTRASOUND: 01/22/2021 TECHNIQUE: Transabdominal TECHNICAL QUALITY: Adequate. FINDINGS: There is a single intrauterine fetus. The fetus is in a cephalic presentation. There is demonstrated cardiac activity with a heart rate of 140 bpm. There is a normal amniotic fluid volume. The largest amniotic fluid pocket measures 5.4 cm. The amniotic fluid index (RAJNI) is 11.8 cm. The placenta is posterior in location and is not low lying. There are Grade 2 placental changes. The cervix measures 4.8 cm in length. BIOMETRY: BPD: 9.2 cm: 37 weeks, 0 days HC: 32.9 cm: 37 weeks, 3 days AC: 32.6 cm: 36 weeks, 3 days FL: 6.8 cm: 35 weeks, 2 days Age by LMP: 36 weeks, 3 days. SAM by LMP: 06/13/2021. age by current US: 36 weeks, 2 days. SAM by current US: 06/14/2021. Estimated weight: 2946 grams, +/- 442 grams, 54 percentile. Gender: US/OB Limited With Biometrics IMPRESSION: Living intrauterine of 36 weeks 2 days as described above. Electronically Signed: Kj Rodriguez MD at 16:23 EDT Tel , Service support ,
== END ==
PROVIDERS: PCP Family Medicine; Referring Provider Obstetrics & Gynecology; Visit Provider Obstetrics & Gynecology
DX: O09.899 Supervision of other high risk pregnancies, unspecified trimester (principal); Z3A.00 Weeks of gestation of pregnancy not specified
CPT/HCPCS: 76816; 87081

== ENCOUNTER 2021-06-15 15:50 | Outpatient (CLI) | payer SELFPAY ==
[2021-06-09 09:03] VITALS: BMI 35.8
[2021-06-15 15:58] VITALS: BP 134/80; PULSE 91; TEMP 36.9
[2021-06-15 16:06] VITALS: BMI 35.9
--- NOTE | 2021-06-16 08:32 | OB.TRI.PN ---
Progress Notes Date of Service: 06/15/21 Progress Note: Patient presents for triage evaluation secondary to contractions - cervix 1cm on presentation and on recheck FHT: Moderate variability reactive no decelerations category I tracing - questionable decel but Category 1 for 2 hours [place]: q5-7 min Contractions Assessment and plan: Reactive NST, reassuring maternal and status patient discharged to home to follow-up at next scheduled visit. See problem list details for additional plan information. Charges/Coding Procedures Urinary/Genital [id number]: 69095-31 non-stress test Interp
== END 2021-06-15 17:55 | disposition home or self-care (01) ==
LOC: WPOUT 15:55 → WP 15:55
PROVIDERS: PCP Family Medicine; Visit Provider Obstetrics & Gynecology
DX: O47.9 False labor, unspecified (principal); Z3A.00 Weeks of gestation of pregnancy not specified
CPT/HCPCS: 59025; 59050; 99218; G0378

== ENCOUNTER 2021-06-17 23:10 | Inpatient (IN) | payer SELFPAY ==
[2020-12-18 14:46] VITALS: BMI 30.8
[2021-06-16 09:11] VITALS: BMI 35.8
[2021-06-17 23:07] VITALS: BMI 35.7
--- NOTE | 2021-06-17 23:14 | HP.PCM.OB_ITS ---
HPI - General HPI Narrative SUZIE GOMEZ, is a 36 F who presents IAL 6 cm dilated Maternal Data Information SAM Calculator Estimated Delivery Date Method Current WG Current Estimate 06/13/21 Ultrasound #1 40w 4d PFSH PFSH Home Medications vitamin#30 30 mg iron-10 mg iron-folic acid 1 mg-omg3 capsule 1 cap PO DAILY cap 06/09/19 [History Last Taken 12/20/19] B-complex with vitamin C 1 cap PO DAILY 03/24/21 [History Last Taken Unknown] Allergy/AdvReac Type Severity Reaction Status Date / Time No Known Allergies Allergy Verified 06/16/21 09:11 Family History Father Cancer of heart Grandmother Breast cancer Social History Smoking Status: Never smoker alcohol intake: never substance use type: does not use caffeine: Yes what type of physical activity do you participate in: running frequency: 3-4 times per week seatbelt use: always do you feel safe at home: Yes additional social history: - Vito Patient and have a [employer] History 4 Elective abortions Hx Para 3 Spontaneous abortions Hx # Term Pregnancies Ectopic pregnancies Hx # Pregnancies Multiple births # of living children 3 Past Pregnancies Del. Date Name GA/Weeks Outcome Route Bth Weight Gen Labor Lgth Anesthesia Del Locatn Provider FOB 03/15/11 Aldo 40 live - full term 8lbs 6oz Male 13 h ours epidural [facility] Dr. Tyler Padron 06/24/11 Ricardo 04/27/17 Iris 40 live - full term 8lbs 3oz Female no ne [facility] Dr. Jude Padron 12/21/19 Gilberto Ryan 38 live - full term Male none [facility] VINAY Delivery Date: 03/15/11 No issues during or delivery. Nithya Graysonh Delivery Date: 06/24/11 Adopted child Sandee Grayson Delivery Date: 04/27/17 No issues during or delivery. Sandee Grayson Delivery Date: 12/21/19 No notes to display Visit Details Expected Delivery Route/Plan with Ofelia fuller Labor Preferences- labor support person: Vito labor intervention preferences: minimal intervention pain management options preferred: no epidural cut cord/dad catch: : yes PP control planned: NFP discussed possible routes of delivery and associated risks: [] special requests: [] Plans covid status: non immune flu vaccine: declined tdap vaccine: declined rhogam: na LARC form signed: declined movement and labor precautions reviewed. Problem list reviewed and updated with the most current plan of care details and appropriate orders placed. Relevant counseling for the gestational age provided. Continue routine care and follow up unless otherwise noted in visit notes/problem list details OB Flowsheet Initial Weight: Not Recorded Date -?-?-?-?-?-?-?-?-?-?-?-?- EGA Weight BP Urine Prot -?-?-?-?-?-?-?-?-?-?-?-?- Glucose FHR FuHt Pres Dilation -?-?-?-?-?-?-?-?-?-?-?-?- Effaced St Visit Note 12/18/20 -?-?-?-?-?-?-?-?-?-?-?-?- 14w 5d 163 lb 2 oz 118/80 -?-?-?-?-?-?-?-?-?-?-?-?- 160 -?-?-?--?-?-?-?-?-?-?-?-?- GP - dated by US done last week. US today consistent with prior scan 01/13/21 -?-?-?-?-?-?-?-?-?-?-?-?- 18w 3d 169 lb 112/70 Negative -?-?-?-?-?-?-?-?-?-?-?-?- Negative 150 -?-?-?-?-?-?-?-?-?-?-?-?- SM- no vb lof go od fm noregular ctx 02/17/21 -?-?-?-?-?-?-?-?-?-?-?-?- 23w 3d 175 lb 2 oz 124/62 Nega tive -?-?-?-?-?-?-?-?-?-?-?-?- Negative 140 23 -?-?-?-?-?-?-?-?-?-?-?-?- GP - no LOF, VB, DFM, ctx. Plan home BGT monitoring instead of glucose test. Has not has NOB labs - ordered today 03/10/21 -?-?-?-?-?-?-?-?-?-?-?-?- 26w 3d 181 lb 6 oz 122/78 Nega tive -?-?-?-?-?-?-?-?-?-?-?-?- Negative 145 26 -?-?-?-?-?-?-?-?-?-?-?-?- GP - no LOF, VB, DFM, ctx. Home BGT monitoring reviewed. Had CBC last visit - will need repeated later into third trimester to rule out anemia. 03/24/21 -?-?-?-?-?-?-?-?-?-?-?-?- 28w 3d 181 lb 102/60 -?-?-?-?-?-?-?-?-?-?-?-?- 135 28 Breech -?-?-?-?-?-?-?-?-?-?-?-?- SM- no vb lof go od fm no regular ctx 04/07/21 -?-?-?-?-?-?-?-?-?-?-?-?- 30w 3d 185 lb 6 oz 120/62 Nega tive -?-?-?-?-?-?-?-?-?-?-?-?- Negative 135 30 Oblique -?-?-?-?-?-?-?-?-?-?-?-?- GP - no LOF, VB, DFM, ctx. Denies complaints. LARC signed. 04/28/21 -?-?-?-?-?-?-?-?-?-?-?-?- 33w 3d 186 lb 104/72 Negative -?-?-?-?-?-?-?-?-?-?-?-?- Negative 150 33 Cephalic -?-?-?-?-?-?-?-?-?-?-?-?- SM- no vb lof go od fm no regular ctx 05/12/21 -?-?-?-?-?-?-?-?-?-?-?-?- 35w 3d 187 lb 8 oz 128/78 Nega tive -?-?-?-?-?-?-?-?-?-?-?-?- Negative 125 35 Cephalic -?-?-?-?-?-?-?-?-?-?-?-?- GP - no LOF, VB, DFM, regular ctx. Denies complaints. Labor precautions reviewed 05/19/21 -?-?-?-?-?-?-?-?-?-?-?-?- 36w 3d 188 lb 114/64 Negative -?-?-?-?-?-?-?-?-?-?-?-?- Negative 150 36 Cephalic -?-?-?-?-?-?-?-?-?-?-?-?- SM- no vb lof go od fm nor egular ctx 05/29/21 -?-?-?-?-?-?-?-?-?-?-?-?- 37w 6d 189 lb 8 oz 120/64 Nega tive -?-?-?-?-?-?-?-?-?-?-?-?- Negative 150 38 Cephalic 1 -?-?-?-?-?-?-?-?-?-?-?-?- 50 -3 GP - no LO F, VB, DFM, regular ctx. 06/02/21 -?-?-?-?-?-?-?-?-?-?-?-?- 38w 3d 190 lb 112/72 Negative -?-?-?-?-?-?-?-?-?-?-?-?- Negative 138 38 Cephalic 1 -?-?-?-?-?-?-?-?-?-?-?-?- 60 -2 MH-NO VB, LOF. No reg CTX, Good FM 06/09/21 -?-?-?-?-?-?-?-?-?-?-?-?- 39w 3d 190 lb 6 oz 118/68 Trac e -?-?-?-?-?-?-?-?-?-?-?-?- Negative 130 39 Cephalic 1 -?-?-?-?-?-?-?-?-?-?-?-?- 60 -2 GP - no LO F, VB, DFM, regular ctx. 06/16/21 -?-?-?-?-?-?-?-?-?-?-?-?- 40w 3d 189 lb 8 oz 122/82 Nega tive -?-?-?-?-?-?-?-?-?-?-?-?- Negative 120 40 Cephalic 2 -?-?-?-?-?-?-?-?-?-?-?-?- 50 -2 GP - no LO F, VB, DFM, ctx. Discussed IOL - would like to avoid induction if possible. RAJNI 10.4 today. Will see back end of the week if no spontaneous labor. 06/17/21 -?-?-?-?-?-?-?-?-?-?-?-?- 40w 4d 189 lb 3.2 oz -?-?-?-?-?-?-?-?-?-?-?-?- -?-?-?-?-?-?-?-?-?-?-?-?- NST FHR Rate Baby A Baseline: 130 Variability:: Moderate Accelerations:: 15 x 15 Decelerations:: None NST Reactive:: Yes FHR Category:: Category I Uterine Activity:: q3-5 ROS Constitutional Constitutional: Reports systems reviewed and no addt'l complaints, except as documented ENT HEENT: Reports systems reviewed and no addt'l complaints, except as documented Cardiovascular Cardiovascular: Reports systems reviewed and no addt'l complaints, except as documented Respiratory/Chest Respiratory/Chest: Reports systems reviewed and no addt'l complaints, except as documented Gastrointestinal Gastrointestinal: Reports systems reviewed and no addt'l complaints, except as documented and nausea; Denies abdominal pain Genitourinary Genitourinary: Reports systems reviewed and no addt'l complaints, except as documented, contractions Details: present and frequency (regular ) and movement Details: present Musculoskeletal Musculoskeletal: Reports systems reviewed and no addt'l complaints, except as documented Integumentary Integumentary: Reports as per HPI Neurologic Neurologic: Reports systems reviewed and no addt'l complaints, except as documented Endocrine Endocrinology: Reports systems reviewed and no addt'l complaints, except as documented Vital Signs Vital Signs Vital Signs: Weight Weight: 189 lb 3.2 oz Body Mass Index (BMI) 35.7 Physical Exam Const alert, oriented x3 and healthy appearing Constitutional Narrative: uncomfortable with contractions HEENT normocephalic and moist oral mucous membranes Head and Scalp: atraumatic Neck full ROM, no lymphadenopathy, supple and thyroid normal General: trachea midline Thyroid: thyroid normal Lymph Lymphatic: no lymphadenopathy noted Chest inspection of chest normal Resp normal respiratory effort Cardio regular rate GI normal to inspection, nondistended, normoactive bowel sounds, soft to palpation and non-tender Inspection: gravid external exam normal Bimanual Exam - Vag & Uterus: uterus non-tender Manual OB Exam: estimated gestational size appropriate, presentation cephalic, dilated, effaced and station Extremity normal to inspection General Extremity: Negative for edema Skin no rashes or lesions noted Neuro deep tendon reflexes 2+ bilaterally Motor Exam: strength 5/5 throughout and clonus absent Psych mental status grossly normal Labs Labs Labs: Blood Type O POSITIVE Antibody Screen NEGATIVE Hct 34.3 % (37-47) L Hgb 11.0 g/dL (12.0-15.0) L Obstetrics US Syphilis Total Ab Non-reactive Rubella IgG Antibody Reactive (Nonreactive) Hep Bs Antigen Non-Reactive (Nonreactive) HIV 1&2 Antibody Non-Reactive (Nonreactive) C.trachomatis DNA (PCR) Negative (Negative) Glucose 1 Hr 50 gm 83 mg/dL (70-140) Rhogam given: No Assessment & Plan (1) : QUALIFIERS: Weeks of gestation: 40 weeks Qualified Code(s): Z3A.40 - 40 weeks gestation of COMMENT: declines genetic, carrier and NTD. NL anatomy BGT WNL. (2) Supervision of other normal : COMMENT: PRR SAM: 06/13/21 boy! ?Andi PC: Ricardo Carlson(adopted), Iris, Ryan Spouse: Vito (3) Short interval between pregnancies affecting , antepartum: (4) Advanced maternal age affecting , antepartum: COMMENT: declines genetic testing. plan 36 week growth US normal PLAN: admit IAL exp management gbs neg
[2021-06-17] MEDS: Lactated Ringers 1,000 ML 50 ML IV (23:40)
[2021-06-17 23:48] LABS: Absolute Lymphocyte Count 1.61 X10^3/uL (0.83-4.51); Absolute Neutrophil Count 8.9 X10^3/uL (2.0-7.7); Basophil# 0.02 X10^3/uL; Basophil% 0.2 % (0-1); Eosinophil# 0.06 X10^3/uL; Eosinophils% 0.5 % (0-5); Hematocrit 38.2 % (37-47); Hemoglobin 12.4 g/dL (12.0-15.0); Lymphocyte # 1.61 X10^3/ul (0.83-4.51); Lymphocyte % 13.9 % (19-41); Mean Corp Hgb Conc 32.5 g/dL (32-36); Mean Corpuscular Hgb 28.7 pg (27.0-32.0); Mean Corpuscular Volume 88.4 fL (81-99); Mean Platelet Vol. 12.7 fl (6.2-12.0); Monocyte# 0.95 X10^3/uL; Monocyte% 8.2 % (0-10); NRBC Flagged by Analyzer 0 % (0-5); Neutrophil % 76.7 % (47-70); Platelet Count 158 K/mm3 (150-450); RBC Distribution Width CV 13.4 % (11.6-14.6); RBC Distribution Width SD 43.6 fl (35.1-43.9); Red Blood Count 4.32 M/mm3 (4.2-5.4); White Blood Count 11.6 K/mm3 (4.4-11.0)
[2021-06-18] VITALS (20 sets, daily range): BP systolic 103–132; BP diastolic 56–77; PULSE 43–103; RESP 16; TEMP 36.2–37.7; O2SAT 16–99
--- NOTE | 2021-06-18 00:09 | NURSING ---
pt refused covid swab
--- NOTE | 2021-06-18 03:47 | OP.PCM_ITS ---
Assessment & Plan (1) Vaginal delivery: COMMENT: SM ial 40 boy Andi (2) Advanced maternal age affecting , antepartum: COMMENT: declines genetic testing. plan 36 week growth US normal (3) Short interval between pregnancies affecting , antepartum: (4) Supervision of other normal : COMMENT: PRR SAM: 06/13/21 boy! ?Andi PC: Ricardo Carlson(adopted), Iris, Ryan Spouse: Vito (5) : QUALIFIERS: Weeks of gestation: 40 weeks Qualified Code(s): Z3A.40 - 40 weeks gestation of COMMENT: declines genetic, carrier and NTD. NL anatomy BGT WNL. Maternal Data Information SAM Calculator Estimated Delivery Date Method Current WG Current Estimate 06/13/21 Ultrasound #1 40w 5d Vaginal Delivery Operative Information Date of Procedure: 06/18/21 Pre-Operative Diagnosis: IAL Post-Operative Diagnosis: same Surgery / Procedure Performed: Spontaneous Vaginal Delivery Type of Anesthesia: None Special Medications: none Estimated Blood Loss: 100 Fluids Replaced: crystalloid Findings Description of Procedure: Patient began pushing and delivered the head in the DIANNA presentation. The head was delivered atraumatically . The anterior and posterior shoulders delivered without complication followed by the rest of the infant and the was placed on the maternal abdomen. Delayed cord clamping was employed for approximately 60 seconds. Cord was clamped and cut and gentle traction was applied to the cord and the placenta delivered spontaneously immediately following it was noted to be intact with three-vessel cord with a velamentous insertion. The perineum and vagina were inspected and noted to have no laceration. EBL was 100 cc. Patient and infant tolerated delivery well. Presentation: DIANNA Amniotic Membrane Rupture Type: Artificial Amniotic Fluid Description: Clear Placental Delivery Description: Spontaneous Placenta Disposition: [facility] Cord Vessel Description: 3 Vessels Cord Entanglement: None Delayed Cord Clamping: Yes Post Vaginal Delivery Episiotomy Description: None Laceration: None Complication Complications: None Procedures Urinary/Genital [id number]: [id number] Vaginal Delivery [facility]
--- NOTE | 2021-06-18 03:48 | PCM.DC ---
Discharge Instructions Diet Discharge Diet: No restrictions Activity Discharge Activity: Return to Normal Activity, May Not Drive (while taking narcotic pain medications.) and May Shower May resume sexual activity in: 4-6 weeks Dressing / Incision Call your doctor if your incision/area has: Continuous Slow Oozing, Sudden Increased Bleeding, Increased Pain/ Swelling, Increased Redness and Foul Smelling Discharge Follow Up Care Please Follow Up With: Bronwyn Roque MD When: Call [phone] to make an appointment with your doctor in 6 weeks. If you had elevated blood pressure or 4th degree laceration, you will need to be seen in 2 weeks. Test Results: Test results from this visit will be discussed in further detail at your follow-up appointment, if applicable. Discharge Plan Admission Admit Date/Time: 06/17/21 23:10 Attending Provider: Bronwyn Roque Primary Care Provider: Alton Monsivais Discharge Orders/Prescriptions Prescriptions: No Action vitamin#30 30 mg iron-10 mg iron-folic acid 1 mg-omg3 capsule 30 mg iron-10 mg iron-1 mg capsule 1 cap PO DAILY RF: 0 B-complex with vitamin C Capsule 1 cap PO DAILY RF: 0 DHA 200 mg Capsule 1 mg PO DAILY RF: 0
[2021-06-18] MEDS: 0.9% Saline Lock 10 ML Syringe IV (05:35)
--- NOTE | 2021-06-18 07:49 | PCM.DC ---
Discharge Instructions Diet Discharge Diet: No restrictions Activity May resume sexual activity in: 4-6 weeks Dressing / Incision Call your doctor if your incision/area has: Continuous Slow Oozing, Sudden Increased Bleeding, Increased Pain/ Swelling, Increased Redness and Foul Smelling Discharge Follow Up Care Please Follow Up With: rBonwyn Roque MD Test Results: Test results from this visit will be discussed in further detail at your follow-up appointment, if applicable. Discharge Plan Admission Admit Date/Time: 06/17/21 23:10 Attending Provider: Bronwyn Roque Primary Care Provider: Alton Monsivais Discharge Orders/Prescriptions Prescriptions: No Action vitamin#30 30 mg iron-10 mg iron-folic acid 1 mg-omg3 capsule 30 mg iron-10 mg iron-1 mg capsule 1 cap PO DAILY RF: 0 B-complex with vitamin C Capsule 1 cap PO DAILY RF: 0 DHA 200 mg Capsule 1 mg PO DAILY RF: 0
[2021-06-18] MEDS: Prenatal Vits Tablet 1 TABLET PO (10:03)
[2021-06-18] MEDS: Vitamin B Comp W-C Capsule 1 CAP PO (10:03)
[2021-06-19 00:39] VITALS: BP 102/61; PULSE 76; RESP 18; TEMP 36.6; O2SAT 95
[2021-06-19 04:30] VITALS: BP 105/56; PULSE 62; RESP 16; TEMP 36.6; O2SAT 95
--- NOTE | 2021-06-19 08:13 | PCM.PN.OB ---
Subjective Subjective Patient doing well without complaints. Tolerating PO. Ambulating and voiding without difficulty. feeding well. Denies chest pain, shortness of breath, calf pain/swelling, fevers, chills, lightheadedness. Objective Data Objective Data Vital Signs: Vital Signs Temp Pulse Resp BP Pulse Ox 97.8 F 62 16 105/56 L 95 06/19/21 04:30 06/19/21 04:30 06/19/21 04:30 06/19/21 04:30 06/19/21 04:30 Oxygen Delivery Method Room Air Weight: 189 lb 3.2 oz Body Mass Index (BMI) 35.7 Intake & Output: Intake and Output for Last 24 Hours 06/17/21 06/18/21 06/19/21 23:59 23:59 23:59 Intake Total 0.83 / 0.83 1600 / 1600 Output Total 600 / 600 Balance 0.83 / 0.83 1000 / 1000 Lab / Micro Data Result Diagrams: 06/17/21 23:40 ROS Constitutional Constitutional: Reports systems reviewed and no addt'l complaints, except as documented Cardiovascular Cardiovascular: Reports systems reviewed and no addt'l complaints, except as documented Respiratory/Chest Respiratory/Chest: Reports systems reviewed and no addt'l complaints, except as documented Gastrointestinal Gastrointestinal: Reports systems reviewed and no addt'l complaints, except as documented Physical Exam Const alert, oriented x3 and no apparent distress HEENT Head and Scalp: atraumatic Resp normal respiratory effort GI soft to palpation and non-tender Bimanual Exam - Vag & Uterus: uterus non-tender Uterus Palpation: uterus fundus firm (below Umbilicus) Assessment & Plan (1) Vaginal delivery: COMMENT: VENTURA ial 40 boy Andi PLAN: s/p PPD # 1 1. routine post delivery care 2. breast feeding- support given 3. rh positive 4. rubella immune
[2021-06-19 09:28] VITALS: BP 113/62; PULSE 77; RESP 16; TEMP 36.1
[2021-06-19 14:55] VITALS: BP 119/63; PULSE 78; RESP 16; TEMP 36.3
== END 2021-06-19 17:35 | disposition home or self-care (01) | DRG 807 ==
LOC: WPOUT 23:15 → WP 23:15
PROVIDERS: Admitting Provider Obstetrics & Gynecology; PCP Family Medicine; Referring Provider Obstetrics & Gynecology; Visit Provider Obstetrics & Gynecology
DX: O80 Encounter for full-term uncomplicated delivery (principal); Z37.0 Single live birth; Z3A.40 40 weeks gestation of pregnancy
CPT/HCPCS: 59025; 59050; 85025; 86850; 86900; 86901; 99218; J7120; A4216; G0378

== ENCOUNTER → 2025-03-02 | Outpatient (CLI) | payer SELFPAY | END | disposition home or self-care (01) | LOC: LABSPEC 16:33 | PROVIDERS: PCP Family Medicine; Referring Provider Obstetrics & Gynecology; Visit Provider Obstetrics & Gynecology | DX: Z12.4 Encounter for screening for malignant neoplasm of cervix (principal) | CPT/HCPCS: 87624; 88175; G0145 ==

== ENCOUNTER → 2025-03-14 | Outpatient (CLI) | payer SELFPAY ==
--- NOTE | 2025-03-14 16:15 | BI_ITS ---
EXAM: SCRN MAMM (CAD)W/CARSON BILAT DATE: 03/14/2025 CLINICAL HISTORY: F, Age 40 y/o , SCREENING MAMMOGRAM No family history. BREAST CANCER RISK ASSESSMENT: Not assessed. TECHNIQUE: Bilateral screening digital breast tomosynthesis with 2D and 3D images. Computer aided detection. COMPARISON: Baseline examination. FINDINGS: TISSUE DENSITY: The breast tissue is heterogenously dense, which may obscure small masses. Bilateral Breast Mammographic Findings: No significant masses, calcifications or other abnormalities are identified. BI/SCRN MAMM (CAD)W/CARSON BILAT IMPRESSION: OVERALL FINAL ASSESSMENT: BIRADS 1 NEGATIVE RECOMMENDATION: Routine annual follow-up in 1 Year A letter with findings and recommendations will be mailed to the patient. Reading Location: [place] [id number]
== END | disposition home or self-care (01) ==
PROVIDERS: Referring Provider Obstetrics & Gynecology; Visit Provider Obstetrics & Gynecology
DX: Z12.31 Encounter for screening mammogram for malignant neoplasm of breast (principal)
CPT/HCPCS: 77063; 77067